=== PATIENT | female | born 1985 | race Two or more races ===

== ENCOUNTER → 2021-11-29 13:45 | Outpatient (BNVA) | payer OTHER, SELFPAY | PROVIDERS: PCP Nurse Practitioner Family; Visit Provider Physician Assistant | DX: S16.1XXA Strain of muscle, fascia and tendon at neck level, initial encounter (principal); S46.911A Strain of unspecified muscle, fascia and tendon at shoulder and upper arm level, right arm, initial encounter; Y04.2XXA Assault by strike against or bumped into by another person, initial encounter | CPT/HCPCS: 99203 ==

== ENCOUNTER → 2021-12-02 09:32 | Outpatient (BNVA) | payer OTHER, SELFPAY | PROVIDERS: PCP Nurse Practitioner Family; Visit Provider Physician Assistant Medical | DX: S16.1XXA Strain of muscle, fascia and tendon at neck level, initial encounter (principal); S46.911A Strain of unspecified muscle, fascia and tendon at shoulder and upper arm level, right arm, initial encounter; Y04.2XXA Assault by strike against or bumped into by another person, initial encounter | CPT/HCPCS: 72070; 73030; 99214 ==

== ENCOUNTER → 2021-12-06 08:27 | Outpatient (BNVA) | payer OTHER, SELFPAY | PROVIDERS: PCP Nurse Practitioner Family; Visit Provider Physician Assistant Medical | DX: S16.1XXD Strain of muscle, fascia and tendon at neck level, subsequent encounter (principal); S46.911D Strain of unspecified muscle, fascia and tendon at shoulder and upper arm level, right arm, subsequent encounter; Y04.2XXD Assault by strike against or bumped into by another person, subsequent encounter | CPT/HCPCS: 99213 ==

== ENCOUNTER → 2021-12-20 13:30 | Outpatient (BNVA) | payer OTHER, SELFPAY | PROVIDERS: PCP Nurse Practitioner Family; Visit Provider Physician Assistant Medical | DX: S16.1XXD Strain of muscle, fascia and tendon at neck level, subsequent encounter (principal); S46.911D Strain of unspecified muscle, fascia and tendon at shoulder and upper arm level, right arm, subsequent encounter; Y04.2XXD Assault by strike against or bumped into by another person, subsequent encounter | CPT/HCPCS: 99213 ==

== ENCOUNTER → 2021-12-29 13:41 | Outpatient (BNVA) | payer OTHER, SELFPAY | PROVIDERS: PCP Nurse Practitioner Family; Visit Provider Physician Assistant Medical | DX: S16.1XXD Strain of muscle, fascia and tendon at neck level, subsequent encounter (principal); S46.911D Strain of unspecified muscle, fascia and tendon at shoulder and upper arm level, right arm, subsequent encounter; Y04.2XXD Assault by strike against or bumped into by another person, subsequent encounter | CPT/HCPCS: 99213 ==

== ENCOUNTER → 2022-01-12 11:05 | Outpatient (BNVA) | payer OTHER, SELFPAY | PROVIDERS: PCP Nurse Practitioner Family; Visit Provider Physician Assistant Medical | DX: S16.1XXD Strain of muscle, fascia and tendon at neck level, subsequent encounter (principal); S46.911D Strain of unspecified muscle, fascia and tendon at shoulder and upper arm level, right arm, subsequent encounter; Y04.2XXD Assault by strike against or bumped into by another person, subsequent encounter; M24.811 Other specific joint derangements of right shoulder, not elsewhere classified; M54.12 Radiculopathy, cervical region | CPT/HCPCS: 99213 ==

== ENCOUNTER 2022-01-20 09:00 | Outpatient (RCR) | payer OTHER, SELFPAY ==
--- NOTE | 2021-12-27 13:55 | MHC.PT.EP ---
[facility] [place] Office [place] Office [place] Office [address] [phone] F: [phone] F: [phone] F: [phone] F: [phone] Physical Therapy Plan of Care Date of Evaluation: Date of Surgery: Diagnosis: R cervical pain and strain, R shoulder pain strain (ACJ sprain) Assessment: Patient is a pleasant 36 y.o female who presents to PT with dx of R shoulder pain/strain and cervical pain/strain after work injury that presents as strain to R ACJ. She has decreased ROM, weakness, pain and impaired functional mobility with dressing, reaching, cleaning and unable to work. She will benefit from skilled PT to restore to PLOF and be mehrdad to return to work full duty. Frequency and Duration: The patient will be seen 2x/week for 4 weeks Short Term Goals: Patient demonstrates independence and consistency with HEP to self manage symptoms. Patient presents with increased R shoulder strength 4+/5 to be able to put on clothing without difficulty. Group Home Goals: 4 weeks Patient presents with increased cervical rotation 80 degrees bilaterally to look over shoulders when driving. Patient presents with increased R shoulder flexion 180 degrees to reach overhead. Treatment Plan: Modalities to reduce pain, spasms and effusion. Manual therapy to restore motion and function. Therapeutic exercise to improve strength and flexibility. Neuromuscular re-education for posture and balance. Therapeutic activities to return to functional activities of daily living. Electronically signed by: Shikha Carrasco, PT, DPT Please sign and return to therapist. Thank you for your referral.
--- NOTE | 2022-02-20 15:28 | MHC.PT.DC ---
[facility] [place] Office [place] Office [place] Office [address] Olvin Peters [address] [phone] F: [phone] F: [phone] F: [phone] F: [phone] Physical Therapy Discharge Report Diagnosis: R cervical pain and strain, R shoulder pain strain (ACJ sprain) Date of Surgery: DOI 11/29/21 Date of Evaluation: 12/27/21 Date of Discharge: 02/20/22 Treatments to Date: 6 Cancellations to Date: 2 No Shows to Date: 1 Discharge Status: Independent with HEP Visit Non-compliance Discharge Summary: Patient last attended PT on 01/20/22. Her assessment notes on 01/20/22 pt had an MRI Ortho follow Wed both at [facility]. pt has 2 more sessions. Pt will be reassessed by PT next session. Pt to bring MRI report. Patient did not show to re-evaluation scheduled on 01/30/22 and her insurance authorization for worker's compensation 02/10/22. Therefore she is discharged from PT at this time. Electronically signed by: Shikha Carrasco, PT, DPT Please sign and return to therapist. Thank you for your referral.
== END 2022-02-20 15:28 | disposition home or self-care (01) ==
LOC: HO.PT 09:00
PROVIDERS: Visit Provider Physician Assistant Medical
DX: S16.1XXD Strain of muscle, fascia and tendon at neck level, subsequent encounter (principal); S46.911D Strain of unspecified muscle, fascia and tendon at shoulder and upper arm level, right arm, subsequent encounter
CPT/HCPCS: 97035; 97110; 97140; 97161; 97530

== ENCOUNTER 2023-04-06 15:33 | Emergency (ER) | payer MEDICAID, SELFPAY ==
--- NOTE | ~2023-04-06 | XR_ITS ---
EXAMINATION: XR CHEST CLINICAL INFORMATION: Chest pain. COMPARISON: None available. TECHNIQUE: 2 views of the chest were obtained. FINDINGS: The lungs are well expanded. No focal consolidation. No pleural effusion. Cardiac silhouette is within normal limits. XR/XR chest 2V IMPRESSION: No acute abnormality.
--- NOTE | ~2023-04-06 | XR_ITS ---
EXAMINATION: XR SHOULDER, LEFT CLINICAL INFORMATION: Pain. COMPARISON: None available. TECHNIQUE: AP external rotation, Grashey, scapular Y, and axillary views of the left shoulder. FINDINGS: The glenohumeral and AC joint space is maintained normal. There is a soft tissue calcification or lateral to the greater tuberosity likely calcific bursitis. No visible acute fracture or dislocation seen. XR/XR shoulder LT min 2V IMPRESSION: 1. Calcific bursitis left shoulder. No visible acute fracture, dislocation or subluxation seen. 2. There is soft tissue calcification lateral to the greater tuberosity.
--- NOTE | 2023-04-06 15:34 | ECG_ITS ---
Test Reason : cp Blood Pressure : / mmHG Vent. Rate : 065 BPM Atrial Rate : 065 BPM P-R Int : 156 ms QRS Dur : 070 ms QT Int : 416 ms P-R-T Axes : 051 -12 025 degrees QTc Int : 432 ms Normal sinus rhythm Possible Anteroseptal infarct , age undetermined Abnormal ECG No previous ECGs available Referred By: Yeimi Levy Electronically Signed By:BRIAN ARZOLA MD
--- NOTE | 2023-04-06 15:34 | ED.GENADULT ---
HPI - General Adult General Chief complaint: Chest Pain Stated complaint: Chest pain/L arm numbness Time Seen by Provider: 04/06/23 18:09 Source: patient, RN notes reviewed and old records reviewed Mode of arrival: ambulatory Limitations: no limitations History of Present Illness HPI narrative: 37-year-old female presents for evaluation of left shoulder pain. Patient reports that she had mild pain in the left shoulder and arm yesterday. The pain worsened significantly when she woke up this morning. The pain radiates into her neck as well as her chest. She denies any personal medical issues She denies any trauma to the area. She states that she has never had pain in that area this bad before No other complaints or concerns Related Data Previous Rx's Medication Instructions Recorded cyclobenzaprine 10 mg tablet 10 mg PO TID PRN muscle spasm #15 04/06/23 tabs naproxen 500 mg tablet 500 mg PO BID PRN pain #20 tabs 04/06/23 Allergies Allergy/AdvReac Type Severity Reaction Status Date / Time No Known Allergies Allergy Unverified 11/20/19 18:06 Review of Systems Constitutional: Constitutional: Denies chills and Denies fever(s) ENT: Reports neck pain and Denies sore throat Cardiovascular: Cardiovascular: Reports chest pain Respiratory: Respiratory: Denies cough Gastrointestinal: Gastrointestinal: Denies abdominal pain Musculoskeletal: Musculoskeletal: Reports arthralgias, Denies joint swelling, Reports limited range of motion, Reports neck pain and Reports radiating pain into limb PMFSH Social History Social History Alcohol intake: never Smoked in Last 30 Days: No Use of substances other than those prescribed or required for medical reasons: No Advance Directives: No Advance Directives Information Provided: No Physical Exam ED Vital Signs: Vital Signs - 24 hr 04/06/23 15:36 04/06/23 18:22 Temperature 98.8 F 98 F Pulse Rate 74 61 Respiratory Rate 18 18 Blood Pressure 122/91 H 114/76 Pulse Oximetry 98 100 Oxygen Delivery Method Room Air Room Air BMI result Body Mass Index 23.0 Const General: healthy appearing, comfortable, no acute distress, alert and awake Nutritional Appearance: well nourished Orientation/consciousness: patient oriented x3 HENMT Head: Yes normocephalic and Yes atraumatic Eyes Eyelids: Yes eyelids normal Conjunctivae: conjunctivae normal Sclerae: sclerae normal Corneas: corneas normal Pupils: Equal, round and reactive pupils present EOM: EOMs intact bilaterally Neck Neck: Yes full ROM Resp Effort & Inspection: normal respiratory effort, able to speak in complete sentences and not labored Skin General skin exam: elasticity normal Neuro General: patient oriented x3 Cranial nerves: Yes Equal, round and reactive pupils present and Yes Bilaterally intact EOM present Cognition (Neuro): normal cognition Extrem Other: Patient has diffuse tenderness the left anterior shoulder. No visual or palpable deformities. Course Course Course Narrative: RME performed by Yeimi Levy PA-C. Patient is a 37 year old assigned female at presenting to the emergency department with chest pain. Detailed physical exam and review of systems are deferred to the sports management professor. Labs, imaging, and swabs ordered. Patient placed back in the waiting room pending room availability and results. Medications Administered Discontinued Medications Generic Name Dose Route Start Last Admin Trade Name Freq PRN Reason Stop Dose Admin Ketorolac Tromethamine 30 mg 04/06/23 18:54 04/06/23 19:19 Ketorolac Tromethamine 30 Mg/Ml Vial IM 04/06/23 18:55 30 mg ONCE ONE Administration Medical Decision Making Medical Decision Making [facility] Narrative: Three 7-year-old female presents for evaluation of left shoulder pain. Clinically her exam is most consistent with musculoskeletal pain. However given that her pain radiates into her chest a cardiac workup was ordered in triage. Her labs are reassuring, her EKG is nonischemic. Chest x-ray is clear. Left shoulder x-ray shows calcific bursitis as well as soft tissue calcifications. Patient likely has degree of muscle spasm related to her acute onset of pain. Will discharge the patient naproxen and cyclobenzaprine. Differential Diagnosis Differential Diagnoses: The differential diagnosis associated with the presentation includes Calcific bursitis Tendonitis Shoulder pain ACS less likely Lab Data [facility] Lab Attestation statement: I reviewed the patient's lab results. Patient has a mild leukopenia with a mild microcytic anemia. No electrolyte or chemistry abnormalities. Patient's troponin is negative. Her symptoms started yesterday, so there is no to repeat a troponin. 04/06/23 15:48 04/06/23 15:48 Labs: Lab Results 04/06/23 Range/Units 15:48 WBC 4.7 L (4.8-10.8) X10*3/uL RBC 4.58 (4.20-5.50) X10*6/uL Hgb 11.2 L (12.0-16.0) g/dl Hct 35.9 L (37.0-47.0) % MCV 78.4 L (80.0-98.0) fL MCH 24.5 L (27.0-33.0) pg MCHC 31.2 (31.0-35.0) g/dl RDW 15.3 (11.0-16.0) % Plt Count 291 (160-400) X10*3/uL MPV 9.7 (9.4-12.3) fL Immature Gran % (Auto) 0.2 (0.0-0.4) % Neut % (Auto) 71.9 (45-73) % Lymph % (Auto) 19.1 L (20-40) % [place] % (Auto) 7.5 (2-11) % Eos % (Auto) 0.9 (0-4) % Baso % (Auto) 0.4 (0-2) % Lymph # (Auto) 0.9 L (1.2-4.9) X10*3/uL [place] # (Auto) 0.4 (0.1-1.2) X10*3/uL Eos # (Auto) 0.0 (0.0-0.4) X10*3/uL Baso # (Auto) 0.0 (0.0-0.2) X10*3/uL Abs Immat Gran (auto) 0.01 (0.00-0.03) X10*3/uL Absolute Neuts (auto) 3.4 (2.0-8.3) x10*3/uL Absolute Nucleated RBC 0.000 (0.0-0.012) X10*3/uL Nucleated RBC % (auto) 0.0 (0.0-0.2) /100WBC PT 12.2 (11.1-13.3) SEC INR 1.0 (0.9-1.1) APTT 28.5 (26.0-36.8) SEC Sodium 137 (135-145) mmol/L Potassium 3.4 (3.3-5.1) mmol/L Chloride 104 (96-108) mmol/L Carbon Dioxide 24 (22-29) mmol/L Anion Gap 12 (12-20) BUN 10 (9-16) mg/dL Creatinine 0.81 (0.5-1.4) mg/dL Estim Creat Clear Calc 77.1 Estimated GFR > 60 Random Glucose 113 (60-115) mg/dL Calcium 8.5 (8.4-10.2) mg/dL Magnesium 2.0 (1.6-2.6) mg/dL Total Bilirubin 0.3 (0.0-1.0) mg/dL AST 17 (5-31) U/L ALT 13 (0-31) U/L Alkaline Phosphatase 76 (39-117) U/L Troponin I High Sens < 2.7 (<3.5-17.0) ng/L Total Protein 7.9 (6.5-8.0) g/dL Albumin 3.8 (3.5-5.0) g/dL Beta HCG, Quant < 2 mIU/mL COVID-19 (FANNY) Negative (Negative) COVID-19 Clin Com See Note Independent Interpretation I performed an independent interpretation of an: EKG (Normal sinus rhythm with rate of 65 beats per minute. No ST segment elevations or depressions.) and Plain X-Ray (No infiltrates on chest x-ray) Interpretation: No acute fractures of left shoulder x-ray Radiology Impression Discussion of test interpretation with radiology: I have reviewed the radiologist's reading. (Calcific bursitis left shoulder. There is soft tissue ossification lateral to the greater tuberosity) Discharge Plan Discharge Clinical Impression: Acute pain of left shoulder Patient Disposition: Home, Self-Care Instructions: Shoulder Pain (ED) Additional Instructions: Your x-ray showed calcifications in her left shoulder called bursitis as well as tendonitis Take naproxen for the pain. Take cyclobenzaprine as needed for muscle spasms This may make you sleepy, did not drink alcohol or drive after taking it The blood work and chest x-ray as well as EKG were reassuring Follow-up with your primary doctor Prescriptions: New naproxen 500 mg tablet 500 mg PO BID PRN (Reason: pain) Qty: 20 0RF cyclobenzaprine 10 mg tablet 10 mg PO TID PRN (Reason: muscle spasm) Qty: 15 0RF
[2023-04-06 15:36] VITALS: BP 122/91; PULSE 74; RESP 18; TEMP 37.1; O2SAT 98; BMI 23.0
[2023-04-06 15:55] LABS: MANUAL DIFF FLAG NO
[2023-04-06 16:01] LABS: Basophils Percent Auto 0.4 % (0-2); Eosinophils Percent Auto 0.9 % (0-4); Hematocrit 35.9 % (37.0-47.0); Hemoglobin 11.2 g/dl (12.0-16.0); Imm Gran Abs Auto 0.01 X10*3/uL (0.00-0.03); Imm Gran Pct Auto 0.2 % (0.0-0.4); Lymphocytes Absolute Auto 0.9 X10*3/uL (1.2-4.9); Lymphocytes Percent Auto 19.1 % (20-40); Mean Corpuscular HGB Conc 31.2 g/dl (31.0-35.0); Mean Corpuscular Hemoglobin 24.5 pg (27.0-33.0); Mean Corpuscular Volume 78.4 fL (80.0-98.0); Mean Platelet Volume 9.7 fL (9.4-12.3); Monocytes Absolute Auto 0.4 X10*3/uL (0.1-1.2); Monocytes Percent Auto 7.5 % (2-11); Neutrophils Absolute Auto 3.4 x10*3/uL (2.0-8.3); Neutrophils Percent Auto 71.9 % (45-73); Platelet Count 291 X10*3/uL (160-400); Red Blood Count 4.58 X10*6/uL (4.20-5.50); Red Cell Distribution Width 15.3 % (11.0-16.0); White Blood Count 4.7 X10*3/uL (4.8-10.8)
[2023-04-06 16:03] LABS: Prothrombin Time 12.2 SEC (11.1-13.3)
[2023-04-06 16:06] LABS: Partial Thromboplastin Time 28.5 SEC (26.0-36.8)
[2023-04-06 16:17] LABS: Alanine Aminotransferase 13 U/L (0-31); Albumin Level 3.8 g/dL (3.5-5.0); Alkaline Phosphatase 76 U/L (39-117); Anion Gap 12 (12-20); Aspartate Amino Transferase 17 U/L (5-31); Bilirubin Total 0.3 mg/dL (0.0-1.0); Blood Urea Nitrogen 10 mg/dL (9-16); Calcium 8.5 mg/dL (8.4-10.2); Carbon Dioxide 24 mmol/L (22-29); Chloride 104 mmol/L (96-108); Creatinine Clr Calc Pharmacy 77.1; Estimated Glomerular Filt Rate > 60; Glucose Random 113 mg/dL (60-115); Potassium 3.4 mmol/L (3.3-5.1); Sodium 137 mmol/L (135-145); Total Protein 7.9 g/dL (6.5-8.0)
[2023-04-06 16:19] LABS: COVID-19 Test Negative (Negative); HCG Quantitative < 2 mIU/mL; IDNOW Serial# 6674DD1D; Troponin-I High Sensitivity < 2.7 ng/L (<3.5-17.0)
[2023-04-06 18:22] VITALS: BP 114/76; PULSE 61; RESP 18; TEMP 36.6; O2SAT 100
[2023-04-06] MEDS: Ketorolac Tromethamine 30 MG/ML VIAL IM (19:19)
[2023-04-06 20:02] LABS: Appearance Urine Clear; Color Urine Yellow; Glucose Urine UA Negative (Negative); Leukocyte Esterase Urine Small (1+) (Negative); Nitrite Urine Negative (Negative); PH 6.5 (5.0-9.0); Specific Gravity - Urine 1.015 (1.005-1.025); UMIC TRIGGER UACC YES; Urine Blood Negative (Negative); Urine Ketones Negative (Negative); Urine Protein Negative (Neg-Trace)
[2023-04-06 20:04] LABS: Bacteria Urine None Seen (None Seen); Hyaline Casts Urine 0-2 /LPF (0-2); RBC Urine 0-2 /HPF (0-2); Squamous Epithelial Cell Urine 0-2 /HPF (0-2); UACC Culture Trigger YES; WBC Urine 21-50 /HPF (0-5)
== END 2023-04-06 20:11 | disposition home or self-care (01) ==
PROVIDERS: Physician Assistant Medical; Emergency Provider Emergency Medicine Emergency Medical Services; PCP Physician Assistant
DX: M25.512 Pain in left shoulder (principal); R07.89 Other chest pain; R20.0 Anesthesia of skin; Z79.899 Other long term (current) drug therapy; Z11.52 Encounter for screening for COVID-19
CPT/HCPCS: 71046; 73030; 80053; 81001; 81003; 83735; 84484; 84702; 85025; 85610; 85730; 87086; 87635; 93005; 96372; 99284; 99285; J1885

== ENCOUNTER → 2023-04-06 15:34 | Outpatient (BNV) | payer MEDICAID, SELFPAY | PROVIDERS: Emergency Provider Emergency Medicine Emergency Medical Services; PCP Physician Assistant; Visit Provider Internal Medicine Cardiovascular Disease | DX: R94.31 Abnormal electrocardiogram [ECG] [EKG] (principal) | CPT/HCPCS: 93010 ==